=== PATIENT | male | born 1995 | race Caucasian/White ===

== ENCOUNTER 2022-06-03 19:23 | Emergency (ER) | payer SELFPAY ==
[~2022-06-03] VITALS: Ht 167.6 cm; Wt 59.6 kg
[2022-06-04] MEDS ORDERED: CEPH500C PO ×2 (07:44→07:56)
[2022-06-04 07:58] VITALS: BP 110/62
== END 2022-06-04 07:57 | disposition home or self-care (01) ==
LOC: M ED 19:23
DX: S60.512A Abrasion of left hand, initial encounter (principal); W26.8XXA Contact with other sharp object(s), not elsewhere classified, initial encounter; Y92.512 Supermarket, store or market as the place of occurrence of the external cause